=== PATIENT | female | born 1950 | race Two or more races ===

== ENCOUNTER → 2017-08-17 07:49 | Outpatient (CLI) | payer OTHER | END | disposition home or self-care (01) | LOC: LAB 07:49 | DX: D68.9 Coagulation defect, unspecified (principal); I10 Essential (primary) hypertension; N39.0 Urinary tract infection, site not specified ==

== ENCOUNTER 2017-08-17 08:31 | Outpatient (CLI) | payer OTHER | END 2017-08-17 08:35 | disposition home or self-care (01) | LOC: NUCLEAR 08:31 | DX: Z01.810 Encounter for preprocedural cardiovascular examination (principal) ==

== ENCOUNTER → 2017-08-17 | Outpatient (CLI) | payer OTHER | END | disposition home or self-care (01) | LOC: RAD 07:46 | DX: Z01.810 Encounter for preprocedural cardiovascular examination (principal) ==

== ENCOUNTER 2018-01-12 08:14 | Outpatient (CLI) | payer OTHER | END 2018-01-12 08:20 | disposition home or self-care (01) | LOC: LAB 08:14 | DX: N39.0 Urinary tract infection, site not specified (principal); R82.79 Other abnormal findings on microbiological examination of urine ==

== ENCOUNTER 2018-02-18 08:00 | Outpatient (CLI) | payer OTHER | END 2018-02-18 08:11 | disposition home or self-care (01) | LOC: LAB 08:00 | DX: N39.0 Urinary tract infection, site not specified (principal); R82.79 Other abnormal findings on microbiological examination of urine ==

== ENCOUNTER 2018-05-07 08:44 | Outpatient (CLI) | payer OTHER | END 2018-05-07 17:00 | disposition home or self-care (01) | LOC: MAMO-SONO 08:44 | DX: Z12.31 Encounter for screening mammogram for malignant neoplasm of breast (principal); Z87.898 Personal history of other specified conditions; N20.0 Calculus of kidney ==

== ENCOUNTER 2018-05-07 10:49 | Outpatient (CLI) | payer OTHER | END 2018-05-07 18:00 | disposition home or self-care (01) | LOC: LAB 10:49 | DX: N39.0 Urinary tract infection, site not specified (principal) ==

== ENCOUNTER 2019-03-23 09:41 | Outpatient (CLI) | payer OTHER | END 2019-03-23 15:20 | disposition home or self-care (01) | LOC: MAMO-SONO 09:41 | DX: N60.11 Diffuse cystic mastopathy of right breast (principal); N60.12 Diffuse cystic mastopathy of left breast ==

== ENCOUNTER 2019-03-23 09:56 | Outpatient (CLI) | payer OTHER | END 2019-03-23 10:00 | disposition home or self-care (01) | LOC: NUCLEAR 09:56 | DX: M81.0 Age-related osteoporosis without current pathological fracture (principal) ==

== ENCOUNTER 2019-06-23 10:50 | Outpatient (CLI) | payer OTHER | END 2019-06-23 11:05 | disposition home or self-care (01) | LOC: NUCLEAR 10:50 | DX: R94.31 Abnormal electrocardiogram [ECG] [EKG] (principal) ==

== ENCOUNTER 2019-06-23 11:27 | Outpatient (CLI) | payer OTHER | END 2019-06-23 15:00 | disposition home or self-care (01) | LOC: RAD 11:27 | DX: R91.8 Other nonspecific abnormal finding of lung field (principal) ==

== ENCOUNTER 2019-06-23 11:38 | Outpatient (CLI) | payer OTHER | END 2019-06-23 15:00 | disposition home or self-care (01) | LOC: LAB 11:38 | DX: D68.8 Other specified coagulation defects (principal); E78.00 Pure hypercholesterolemia, unspecified ==

== ENCOUNTER → 2020-02-27 | Outpatient (CLI) | payer OTHER | END | disposition home or self-care (01) | LOC: LAB 07:50 | PROVIDERS: ATTEND Radiology Diagnostic Radiology | DX: Z20.828 Contact with and (suspected) exposure to other viral communicable diseases (principal); E78.2 Mixed hyperlipidemia ==

== ENCOUNTER 2020-04-12 11:14 | Outpatient (CLI) | payer OTHER | END 2020-04-12 11:22 | disposition home or self-care (01) | LOC: SONOGRAMA 11:14 | PROVIDERS: ATTEND Pathology Anatomic Pathology & Clinical Pathology | DX: D24.2 Benign neoplasm of left breast (principal); Z12.31 Encounter for screening mammogram for malignant neoplasm of breast ==

== ENCOUNTER → 2020-04-12 | Outpatient (CLI) | payer OTHER | END | disposition home or self-care (01) | LOC: MAMO-SONO 08:41 | PROVIDERS: ATTEND Radiology Diagnostic Radiology | DX: Z12.31 Encounter for screening mammogram for malignant neoplasm of breast (principal); N85.00 Endometrial hyperplasia, unspecified; K76.0 Fatty (change of) liver, not elsewhere classified; Z80.3 Family history of malignant neoplasm of breast ==

== ENCOUNTER → 2020-06-20 11:11 | Outpatient (CLI) | payer OTHER | END | disposition home or self-care (01) | LOC: PPH VACUNA 11:11 | PROVIDERS: ATTEND Emergency Medicine Pediatric Emergency Medicine | DX: Z23 Encounter for immunization (principal) ==

== ENCOUNTER → 2020-07-10 08:00 | Outpatient (CLI) | payer OTHER | END | disposition home or self-care (01) | LOC: PPH VACUNA 08:00 | PROVIDERS: ATTEND Emergency Medicine Pediatric Emergency Medicine | DX: Z23 Encounter for immunization (principal) ==

== ENCOUNTER → 2020-09-26 07:53 | Outpatient (CLI) | payer OTHER | END | disposition home or self-care (01) | LOC: LAB 07:11 | PROVIDERS: ATTEND Radiology Diagnostic Radiology | DX: Z20.828 Contact with and (suspected) exposure to other viral communicable diseases (principal) ==

== ENCOUNTER → 2021-02-13 08:00 | Outpatient (CLI) | payer OTHER | END | disposition home or self-care (01) | LOC: PPH VACUNA 08:00 | PROVIDERS: ATTEND Emergency Medicine Pediatric Emergency Medicine | DX: Z23 Encounter for immunization (principal) ==

== ENCOUNTER → 2021-02-15 07:18 | Outpatient (CLI) | payer OTHER | END | disposition home or self-care (01) | LOC: RAD 02-14 11:45 | PROVIDERS: ATTEND Radiology Diagnostic Radiology | DX: M79.642 Pain in left hand (principal); M79.641 Pain in right hand ==

== ENCOUNTER 2021-05-22 06:22 | Outpatient (CLI) | payer OTHER | END 2021-05-22 16:48 | disposition home or self-care (01) | LOC: MAMO-SONO 06:22 | PROVIDERS: ATTEND Internal Medicine | DX: R92.0 Mammographic microcalcification found on diagnostic imaging of breast (principal); N60.11 Diffuse cystic mastopathy of right breast; N60.12 Diffuse cystic mastopathy of left breast; Z12.31 Encounter for screening mammogram for malignant neoplasm of breast ==

== ENCOUNTER → 2021-05-22 07:22 | Outpatient (CLI) | payer OTHER | END | disposition home or self-care (01) | LOC: LAB 07:22 | PROVIDERS: ATTEND Internal Medicine | DX: D64.89 Other specified anemias (principal); E11.9 Type 2 diabetes mellitus without complications; E78.2 Mixed hyperlipidemia; E03.8 Other specified hypothyroidism; N39.0 Urinary tract infection, site not specified; E55.9 Vitamin D deficiency, unspecified ==

== ENCOUNTER → 2021-07-15 08:23 | Outpatient (CLI) | payer OTHER | END | disposition home or self-care (01) | LOC: LAB 08:23 | PROVIDERS: ATTEND Radiology Diagnostic Radiology | DX: N30.00 Acute cystitis without hematuria (principal) ==

== ENCOUNTER 2021-08-08 09:32 | Outpatient (CLI) | payer OTHER | END 2021-08-08 09:34 | disposition home or self-care (01) | LOC: NUCLEAR 09:32 | PROVIDERS: ATTEND Internal Medicine | DX: M81.0 Age-related osteoporosis without current pathological fracture (principal) ==

== ENCOUNTER 2021-08-08 09:44 | Outpatient (CLI) | payer OTHER | END 2021-08-08 09:45 | disposition home or self-care (01) | LOC: LAB 09:44 | PROVIDERS: ATTEND Radiology Diagnostic Radiology | DX: N39.0 Urinary tract infection, site not specified (principal) ==

== ENCOUNTER 2021-09-10 08:00 | Outpatient (CLI) | payer OTHER | END 2021-09-10 08:30 | disposition home or self-care (01) | LOC: PPH VACUNA 08:00 | PROVIDERS: ATTEND Emergency Medicine Pediatric Emergency Medicine | DX: Z23 Encounter for immunization (principal) ==

== ENCOUNTER → 2023-06-03 | Outpatient (CLI) | payer OTHER | END | disposition home or self-care (01) | LOC: MAMO-SONO 07:46 | PROVIDERS: ATTEND Radiology Diagnostic Radiology | DX: Z12.31 Encounter for screening mammogram for malignant neoplasm of breast (principal) ==

== ENCOUNTER 2024-06-28 07:08 | Outpatient (CLI) | payer OTHER | END 2024-06-28 07:11 | disposition home or self-care (01) | LOC: MAMO-SONO 07:08 | PROVIDERS: ATTEND Radiology Diagnostic Radiology | DX: Z13.9 Encounter for screening, unspecified (principal); N95.0 Postmenopausal bleeding; Z12.31 Encounter for screening mammogram for malignant neoplasm of breast ==

== ENCOUNTER 2024-07-12 13:01 | Inpatient (IN) | payer OTHER ==
[~2024-07-12] VITALS: Ht 165.1 cm; Wt 90.7 kg
[2024-07-12] MEDS ORDERED: ATORVASTATIN CA10 MG PO (13:10)
[2024-07-12] MEDS ORDERED: RALOXIFENE HCL60 MG PO (13:11)
[2024-07-12] MEDS ORDERED: IRBESARTAN-HCT1 EACH PO (13:11)
[2024-07-12] MEDS ORDERED: MORPHINE SULFATE 2 MG/ML SYRINGE IV ONE (14:15)
[2024-07-12] MEDS ORDERED: PIPERACILLIN/TAZOBACTAM SODIUM 3.375 GM VIAL IV ONE ×3 (14:15→18:27)
[2024-07-12 14:25] LABS: HEMATOCRIT 42.6 % (36.0-45.00); HEMOGLOBIN 14.6 g/dL (12.0-15.00); MEAN CELL VOLUME 92.3 fL (80.00-100.00); MEAN CORPUSCULAR HEMOGLOBIN 31.5 pg (27.00-32.0); MEAN CORPUSCULAR HGB CONC 34.1 g/dl (32.0-36.0); PLATELET COUNT 168 K/uL (150-450); RED BLOOD COUNT 4.62 M/uL (4.00-6.00); RED CELL DISTRIBUTION WIDTH 14.5 % (11.5-14.5)
[2024-07-12 14:47] LABS: ALBUMIN 3.9 gm/dL (3.4-5.0); BILIRUBIN TOTAL 1.18 mg/dL (0.3-1.2); BILIRUBIN,CONJUGATED 0.35 mg/dL (0.0-0.2); BILIRUBIN,UNCONJUGATED 0.83 mg/dL (0.0-0.6); CALCIUM 10.2 mg/dL (8.5-10.1); CREATININE SERUM 0.99 mg/dL (0.55-1.02); GFR 55.14; GLOBULINA 3.6 G/DL (2.4-3.5); POTASSIUM 3.74 mEq/L (3.5-5.1); TOTAL PROTEIN 7.5 gm/dL (6.4-8.2)
[2024-07-12 14:49] LABS: INR 1.02; PARTIAL THROMBOPLASTIN TIME 27.9 SECONDS (22.0-34.0); PROTHROMBIN TIME 11.1 SECONDS (9.0-11.5)
[2024-07-12 15:07] LABS: URINE APPEARANCE Cloudy; URINE BILIRRUBIN Small (NEGATIVE); URINE BLOOD Negative; URINE COLOR Dark Yellow; URINE GLUCOSE Negative (NEGATIVE); URINE LEUKOCYTE Moderate; URINE NITRATE Positive; URINE PROTEIN 30 (NEGATIVE)
[2024-07-12 15:11] LABS: URINE EPITHELIAL CELLS 37.2 uL (0.0-38.8); URINE RBC 21.3 uL (0.0-20.8); URINE WBC 592.4 uL (0.0-23.2)
[2024-07-12] MEDS ORDERED: RINGERS SOLUTION,LACTATED 1,000 ML IV SCH ×2 (15:15→20:15)
[2024-07-12 16:02] LABS: URINE BACTERIA > 9821.5 uL (0.0-1933); URINE CAST 1.32 uL (0.0-1.40); URINE KETONE 40 (NEGATIVE)
[2024-07-12 16:30] VITALS: BP 112/74; O2SAT 99
[2024-07-12] MEDS ORDERED: MORPHINE SULFATE 4 MG/ML VIAL IV SCH (17:00)
[2024-07-12] MEDS ORDERED: BUPIVACAINE HCL/MPF 0.5% 30ML VIAL ONE (18:36)
[2024-07-12] MEDS ORDERED: LIDOCAINE HCL 1%/EPINEPHRINE 20ML VIAL IJ ONE ×2 (18:36→21:00)
[2024-07-12] MEDS ORDERED: MORPHINE SULFATE 4 MG/ML CARTRIDGE IV PRN (20:15)
[2024-07-12] MEDS ORDERED: OxyCODONE HCL 5 MG TABLET (ROXICODONE) PO PRN (20:15)
[2024-07-12] MEDS ORDERED: ONDANSETRON HCL 2 MG/ML VIAL IV PRN (20:15)
[2024-07-12] MEDS ORDERED: FAMOTIDINE/PF 20 MG/2 ML VIAL IV PUSH SCH (21:00)
[2024-07-12] MEDS ORDERED: BUPIVACAINE HCL 30 ML VIAL IJ ONE (21:00)
[2024-07-12 21:51] VITALS: BP 95/59; O2SAT 94
[2024-07-13] MEDS ORDERED: PIPERACILLIN/TAZOBACTAM SODIUM 3.375 GM in 0.9 % SODIUM CHLORIDE 100 ML IV SCH
[2024-07-13 00:01] LABS: HEMOGLOBIN 12.9 g/dL (12.0-15.00); MEAN CELL VOLUME 92.4 fL (80.00-100.00); MEAN CORPUSCULAR HEMOGLOBIN 31.5 pg (27.00-32.0); MEAN CORPUSCULAR HGB CONC 34.1 g/dl (32.0-36.0); PLATELET COUNT 154 K/uL (150-450); RED BLOOD COUNT 4.11 M/uL (4.00-6.00); RED CELL DISTRIBUTION WIDTH 14.4 % (11.5-14.5)
[2024-07-13] MEDS ORDERED: GABAPENTIN 300 MG CAPSULE PO SCH (01:00)
[2024-07-13] MEDS ORDERED: METOCLOPRAMIDE HCL 5 MG/ML VIAL IV SCH (01:00)
[2024-07-13] MEDS ORDERED: ACETAMINOPHEN 500 MG GEL..CAP PO SCH (02:00)
[2024-07-13] MEDS ORDERED: CELECOXIB 200 MG CAPSULE PO SCH (05:00)
[2024-07-13] MEDS ORDERED: PIPERACILLIN/TAZOBACTAM SODIUM 3.375 GM VIAL IV ONE (05:46)
[2024-07-13 07:30] LABS: HEMATOCRIT 36.6 % (36.0-45.00); HEMOGLOBIN 12.5 g/dL (12.0-15.00); MEAN CELL VOLUME 91.3 fL (80.00-100.00); MEAN CORPUSCULAR HEMOGLOBIN 31.2 pg (27.00-32.0); MEAN CORPUSCULAR HGB CONC 34.2 g/dl (32.0-36.0); PLATELET COUNT 151 K/uL (150-450); RED CELL DISTRIBUTION WIDTH 14.7 % (11.5-14.5)
[2024-07-13 08:00] VITALS: BP 93/59; O2SAT 94
[2024-07-13 08:02] LABS: ALBUMIN 2.8 gm/dL (3.4-5.0); CALCIUM 9.4 mg/dL (8.5-10.1); CREATININE SERUM 0.99 mg/dL (0.55-1.02); GFR 55.14; MAGNESIUM 2.1 mg/dL (1.8-2.4); PHOSPHOROUS 3.5 mg/dL (2.5-4.9); POTASSIUM 4.23 mEq/L (3.5-5.1)
[2024-07-13] MEDS ORDERED: LACTULOSE 20 G/30 ML BLIST.PACK PO SCH (09:00)
[2024-07-13] MEDS ORDERED: HYOSCYAMINE SULFATE 0.125 MG TAB.SUBL SL SCH (09:00)
[2024-07-13] MEDS ORDERED: ENALAPRILAT DIHYDRATE 1.25 MG/ML VIAL IV PRN (13:15)
[2024-07-13 16:00] VITALS: BP 92/63; O2SAT 94
[2024-07-13] MEDS ORDERED: POLYETHYLENE GLYCOL 3350 17 GM BLIST.PACK PO SCH (17:00)
[2024-07-14] VITALS: BP 88/62; O2SAT 90
[2024-07-14 06:48] LABS: HEMATOCRIT 36.1 % (36.0-45.00); MEAN CELL VOLUME 93.2 fL (80.00-100.00); MEAN CORPUSCULAR HEMOGLOBIN 31.1 pg (27.00-32.0); MEAN CORPUSCULAR HGB CONC 33.4 g/dl (32.0-36.0); PLATELET COUNT 152 K/uL (150-450); RED BLOOD COUNT 3.87 M/uL (4.00-6.00); RED CELL DISTRIBUTION WIDTH 14.4 % (11.5-14.5)
[2024-07-14 08:03] VITALS: BP 86/56; O2SAT 94
[2024-07-14] MEDS ORDERED: GABAPENTIN 100 MG CAPSULE PO SCH (17:00)
[2024-07-14 19:50] VITALS: BP 97/65; O2SAT 96
[2024-07-14] MEDS ORDERED: GABAPENTIN 300 MG CAPSULE PO SCH (21:00)
[2024-07-15 00:46] VITALS: BP 102/68; O2SAT 94
[2024-07-15 06:41] LABS: HEMATOCRIT 32.7 % (36.0-45.00); MEAN CORPUSCULAR HEMOGLOBIN 31.3 pg (27.00-32.0); MEAN CORPUSCULAR HGB CONC 33.7 g/dl (32.0-36.0); PLATELET COUNT 159 K/uL (150-450); RED BLOOD COUNT 3.51 M/uL (4.00-6.00); RED CELL DISTRIBUTION WIDTH 14.6 % (11.5-14.5)
[2024-07-15 07:17] LABS: ALBUMIN 2.4 gm/dL (3.4-5.0); BILIRUBIN TOTAL 0.73 mg/dL (0.3-1.2); CALCIUM 9.5 mg/dL (8.5-10.1); CREATININE SERUM 0.98 mg/dL (0.55-1.02); GFR 55.79; GLOBULINA 2.8 G/DL (2.4-3.5); MAGNESIUM 2.2 mg/dL (1.8-2.4); POTASSIUM 4.7 mEq/L (3.5-5.1); TOTAL PROTEIN 5.2 gm/dL (6.4-8.2)
[2024-07-15 07:42] LABS: PHOSPHOROUS 1.8 mg/dL (2.5-4.9)
[2024-07-15 08:00] VITALS: BP 105/70; O2SAT 95
[2024-07-15] MEDS ORDERED: POTASSIUM PHOS,M-BASIC-D-BASIC 3 MM/ML VIAL IV ONE (10:00)
[2024-07-15 16:00] VITALS: BP 119/75; O2SAT 95
== END 2024-07-15 18:27 | disposition home or self-care (01) | DRG 399 ==
LOC: ER 13:01 → SURH 16:58
PROVIDERS: Emergency Medicine; Internal Medicine Geriatric Medicine; ADMIT Colon & Rectal Surgery; ATTEND Colon & Rectal Surgery
PROC: BW21YZZ Computerized Tomography (CT Scan) of Abdomen and Pelvis using Other Contrast (ICD-10-PCS; 2024-07-12)
PROC: 0DTJ4ZZ Resection of Appendix, Percutaneous Endoscopic Approach (ICD-10-PCS; principal; 2024-07-13)
PROC: 3E1M48Z Irrigation of Peritoneal Cavity using Irrigating Substance, Percutaneous Endoscopic Approach (ICD-10-PCS; 2024-07-13)
PROC: B24BZZZ Ultrasonography of Heart with Aorta (ICD-10-PCS; 2024-07-15)
DX: K35.32 Acute appendicitis with perforation, localized peritonitis, and gangrene, without abscess (principal); I10 Essential (primary) hypertension; E78.5 Hyperlipidemia, unspecified

== ENCOUNTER 2024-07-19 07:57 | Inpatient (IN) | payer OTHER ==
[~2024-07-19] VITALS: Ht 165.1 cm; Wt 90.7 kg
[~2024-07-19 07:57] MED LIST: ATORVASTATIN CA10 MG PO; IRBESARTAN-HCT1 EACH PO; RALOXIFENE HCL60 MG PO
[2024-07-19] MEDS ORDERED: MORPHINE SULFATE 2 MG/ML CARTRIDGE IV ONE (08:15)
[2024-07-19] MEDS ORDERED: 0.9 % SODIUM CHLORIDE 1,000 ML IV SCH (08:30)
[2024-07-19] MEDS ORDERED: DEXTROSE 5 % AND 0.9 % NACL 1,000 ML IV SCH (09:45)
[2024-07-19] MEDS ORDERED: VANCOMYCIN HCL 1,000 MG VIAL IV SCH (10:03)
[2024-07-19] MEDS ORDERED: FAMOTIDINE/PF 20 MG/10 ML SYRINGE IV SCH (10:05)
[2024-07-19] MEDS ORDERED: ENOXAPARIN SODIUM 40 MG/0.4 ML SYRINGE SUBCUTANEO SCH (10:05)
[2024-07-19] MEDS ORDERED: VANCOMYCIN HCL 1,000 MG VIAL ONE ×2 (10:29→21:11)
[2024-07-19] MEDS ORDERED: ENOXAPARIN SODIUM 40 MG/0.4 ML SYRINGE SUBCUTANEO ONE (10:29)
[2024-07-19] MEDS ORDERED: FAMOTIDINE/PF 20 MG/2 ML VIAL ONE (10:29)
[2024-07-19 11:02] VITALS: BP 94/60
[2024-07-19 11:04] LABS: MEAN CORPUSCULAR HGB CONC 32.6 g/dl (32.0-36.0); RED BLOOD COUNT 2.32 M/uL (4.00-6.00); RED CELL DISTRIBUTION WIDTH 14.8 % (11.5-14.5)
[2024-07-19 11:06] LABS: HEMATOCRIT 21.5 % (36.0-45.00); MEAN CORPUSCULAR HEMOGLOBIN 30.1 pg (27.00-32.0)
[2024-07-19 11:07] LABS: PLATELET COUNT 333 K/uL (150-450)
[2024-07-19] MEDS ORDERED: AMINOCAPROIC ACID 250 MG/ML VIAL IV STA (11:07)
[2024-07-19 11:17] LABS: ABG PH 7.467 (7.35-7.45); ABG PO2 63.2 mmHg (80-100); ABG pCO2 27.8 mmHg (35-45); BASE EXCESS -2.6 mmol/l; BICARBONATE 19.6 mmol/l (23-25); SaO2 93.2 %; Tco2 20.5 mmol/l
[2024-07-19 11:28] LABS: allen test SATISFACTORY; o2 21 %; puncture site RADIAL RIGHT
[2024-07-19 11:32] LABS: INR 1.08; PARTIAL THROMBOPLASTIN TIME 23.7 SECONDS (22.0-34.0); PROTHROMBIN TIME 11.7 SECONDS (9.0-11.5)
[2024-07-19] MEDS ORDERED: INSULIN LISPRO 1,000 UNIT/10 ML UNITS SUBCUTANEO PRN (11:45)
[2024-07-19] MEDS ORDERED: DEXTROSE 50 % IN WATER 0.5 G/ML DISP.SYRIN IV PRN (11:45)
[2024-07-19 12:26] LABS: ALBUMIN 1.8 gm/dL (3.4-5.0); BILIRUBIN TOTAL 0.43 mg/dL (0.3-1.2); CALCIUM 8.8 mg/dL (8.5-10.1); CREATININE SERUM 0.91 mg/dL (0.55-1.02); GFR 60.77; GLOBULINA 2.9 G/DL (2.4-3.5); POTASSIUM 4.54 mEq/L (3.5-5.1); TOTAL PROTEIN 4.7 gm/dL (6.4-8.2)
[2024-07-19 12:34] LABS: PROCALCITONIN 1.38 ng/ml (0.020-0.080)
[2024-07-19 12:36] LABS: TSH 0.62 uIU/mL (0.358-3.74)
[2024-07-19 12:40] LABS: C-REACTIVE PROTEIN 12.2 MG/DL (0.00-0.29)
[2024-07-19] MEDS ORDERED: BUPIVACAINE HCL/MPF 0.5% 30ML VIAL ONE (12:48)
[2024-07-19] MEDS ORDERED: LIDOCAINE HCL 1%/EPINEPHRINE 20ML VIAL IJ ONE (12:48)
[2024-07-19] MEDS ORDERED: NOREPINEPHRINE BITARTRATE 1 MG/ML AMPUL IV ONE ×2 (12:58→13:03)
[2024-07-19] MEDS ORDERED: MEROPENEM 500 MG/VIAL VIAL IV SCH ×2 (13:00→17:00)
[2024-07-19 13:03] LABS: PH,URINE 5.5 (5.0-8.0); URINE APPEARANCE Cloudy; URINE BILIRRUBIN Small (NEGATIVE); URINE BLOOD Negative; URINE COLOR Dark Yellow; URINE GLUCOSE Negative (NEGATIVE); URINE KETONE Trace (NEGATIVE); URINE LEUKOCYTE Trace; URINE NITRATE Negative; URINE PROTEIN 30 (NEGATIVE)
[2024-07-19 13:07] LABS: URINE BACTERIA 9.7 uL (0.0-1933); URINE CAST 6.62 uL (0.0-1.40); URINE EPITHELIAL CELLS 6.1 uL (0.0-38.8); URINE RBC 29.3 uL (0.0-20.8); URINE WBC 4.5 uL (0.0-23.2)
[2024-07-19] MEDS ORDERED: HETASTARCH IN 0.9 % NACL 500 ML PLAST..BAG IV ONE (13:26)
[2024-07-19] MEDS ORDERED: METRONIDAZOLE/SODIUM CHLORIDE 500 MG/100 ML PIGGYBACK IV ONE (13:27)
[2024-07-19] MEDS ORDERED: CEFTRIAXONE SODIUM 2,000 MG VIAL ONE (13:27)
[2024-07-19 13:47] LABS: URINE CRYSTALS FEW /HPF; URINE MUCUS HEAVY
[2024-07-19 13:59] LABS: CORTISOL 69.04 ug/dl
[2024-07-19] MEDS ORDERED: MIDAZOLAM HCL 2 MG/2 ML VIAL IV PUSH ONE (15:55)
[2024-07-19 16:23] LABS: ABG PO2 177.8 mmHg (80-100); BASE EXCESS -5.4 mmol/l; BICARBONATE 18.5 mmol/l (23-25); SaO2 99.5 %; Tco2 19.5 mmol/l
[2024-07-19 17:21] LABS: allen test SATISFACTORY; o2 70 %; puncture site RADIAL RIGHT
[2024-07-19 17:22] LABS: HEMATOCRIT 27.6 % (36.0-45.00); HEMOGLOBIN 9.2 g/dL (12.0-15.00); MEAN CELL VOLUME 89.6 fL (80.00-100.00); MEAN CORPUSCULAR HEMOGLOBIN 29.8 pg (27.00-32.0); MEAN CORPUSCULAR HGB CONC 33.4 g/dl (32.0-36.0); PLATELET COUNT 212 K/uL (150-450); RED BLOOD COUNT 3.08 M/uL (4.00-6.00); RED CELL DISTRIBUTION WIDTH 15.3 % (11.5-14.5)
[2024-07-19 17:56] LABS: CALCIUM 7.6 mg/dL (8.5-10.1); CREATININE SERUM 0.96 mg/dL (0.55-1.02); GFR 57.13; POTASSIUM 4.59 mEq/L (3.5-5.1)
[2024-07-19 18:02] LABS: CALCIUM 7.6 mg/dL (8.5-10.1); CREATININE SERUM 1.01 mg/dL (0.55-1.02); GFR 53.88; MAGNESIUM 1.7 mg/dL (1.8-2.4); PHOSPHOROUS 3.5 mg/dL (2.5-4.9); POTASSIUM 4.51 mEq/L (3.5-5.1)
[2024-07-19 19:55] VITALS: BP 123/76; O2SAT 100
[2024-07-19 20:00] VITALS: BP 100/64; O2SAT 100
[2024-07-19 21:00] VITALS: BP 124/74; O2SAT 100
[2024-07-19] MEDS ORDERED: FentaNYL CITRATE/PF 1,000 MCG in 0.9 % SODIUM CHLORIDE 100 ML IV SCH (21:00)
[2024-07-19] MEDS ORDERED: FAMOTIDINE/PF 20 MG/2 ML VIAL IV PUSH SCH (21:00)
[2024-07-19 22:13] VITALS: BP 114/72; O2SAT 100
[2024-07-19 23:25] VITALS: BP 104/67; O2SAT 100
[2024-07-20] VITALS (10 sets, daily range): BP systolic 113–155; BP diastolic 63–92; O2SAT 96–100
[2024-07-20] MEDS ORDERED: MEROPENEM 500 MG/VIAL VIAL IV SCH
[2024-07-20] MEDS ORDERED: CHLORHEXIDINE GLUCONATE 15ML BRUSH KIT MM SCH (01:00)
[2024-07-20] MEDS ORDERED: VANCOMYCIN HCL 1,000 MG VIAL ONE ×2 (08:02→14:34)
[2024-07-20 08:55] LABS: ABG PH 7.374 (7.35-7.45); ABG PO2 111.9 mmHg (80-100); BASE EXCESS -2.2 mmol/l; BICARBONATE 22.8 mmol/l (23-25); SaO2 98.2 %; Tco2 24.1 mmol/l
[2024-07-20 08:56] LABS: allen test SATISFACTORY; o2 50 %; puncture site RADIAL RIGHT
[2024-07-20] MEDS ORDERED: POLYVINYL ALCOHOL 15 ML DROPS OP SCH (09:00)
[2024-07-20 09:56] LABS: MEAN CORPUSCULAR HGB CONC 34.3 g/dl (32.0-36.0); PLATELET COUNT 250 K/uL (150-450); RED BLOOD COUNT 2.53 M/uL (4.00-6.00); RED CELL DISTRIBUTION WIDTH 14.9 % (11.5-14.5)
[2024-07-20 10:22] LABS: MEAN CORPUSCULAR HEMOGLOBIN 30.4 pg (27.00-32.0)
[2024-07-20 10:24] LABS: HEMATOCRIT 22.3 % (36.0-45.00)
[2024-07-20 10:25] LABS: HEMOGLOBIN 7.7 g/dL (12.0-15.00)
[2024-07-20] MEDS ORDERED: FUROsemide 20 MG/2 ML VIAL IV SCH (10:30)
[2024-07-20] MEDS ORDERED: FUROsemide 20 MG/2 ML VIAL IV STA (10:30)
[2024-07-20 10:56] LABS: BILIRUBIN TOTAL 0.23 mg/dL (0.3-1.2); CALCIUM 8.2 mg/dL (8.5-10.1); CREATININE SERUM 0.76 mg/dL (0.55-1.02); GFR 74.81; GLOBULINA 2.7 G/DL (2.4-3.5); MAGNESIUM 1.9 mg/dL (1.8-2.4); POTASSIUM 4.23 mEq/L (3.5-5.1); TOTAL PROTEIN 4.7 gm/dL (6.4-8.2)
[2024-07-20 11:27] LABS: ABG PH 7.434 (7.35-7.45); ABG PO2 126.9 mmHg (80-100); ABG pCO2 34.3 mmHg (35-45)
[2024-07-20 11:33] LABS: BICARBONATE 22.5 mmol/l (23-25); SaO2 98.9 %; Tco2 23.5 mmol/l
[2024-07-20 11:34] LABS: o2 50 %
[2024-07-20 11:35] LABS: allen test SATISFACTORY; puncture site RADIAL RIGHT
[2024-07-20] MEDS ORDERED: ALBUTEROL SULFATE 3 ML/2.5 MG AMPUL.NEB IH SCH (13:00)
[2024-07-20] MEDS ORDERED: MELATONIN 5 MG TABLET PO PRN (19:00)
[2024-07-20] MEDS ORDERED: MORPHINE SULFATE 4 MG/ML VIAL IV PRN (19:00)
[2024-07-20] MEDS ORDERED: MORPHINE SULFATE 4 MG/ML CARTRIDGE IV PRN (19:45)
[2024-07-21] VITALS (10 sets, daily range): BP systolic 88–122; BP diastolic 61–78; O2SAT 92–98
[2024-07-21 02:01] LABS: HEMATOCRIT 25.1 % (36.0-45.00); MEAN CELL VOLUME 86.1 fL (80.00-100.00); MEAN CORPUSCULAR HGB CONC 35.6 g/dl (32.0-36.0); PLATELET COUNT 248 K/uL (150-450); RED BLOOD COUNT 2.91 M/uL (4.00-6.00); RED CELL DISTRIBUTION WIDTH 15.3 % (11.5-14.5)
[2024-07-21 02:10] LABS: HEMOGLOBIN 8.9 g/dL (12.0-15.00); MEAN CORPUSCULAR HEMOGLOBIN 30.5 pg (27.00-32.0)
[2024-07-21] MEDS ORDERED: DILTIAZEM HCL 125MG/25ML VIAL IV SCH (03:00)
[2024-07-21] MEDS ORDERED: DILTIAZEM HCL 125 MG in 0.9 % SODIUM CHLORIDE 100 ML IV SCH (07:00)
[2024-07-21 07:42] LABS: BILIRUBIN TOTAL 0.35 mg/dL (0.3-1.2); CALCIUM 8.5 mg/dL (8.5-10.1); CREATININE SERUM 0.62 mg/dL (0.55-1.02); GFR 94.62; GLOBULINA 2.8 G/DL (2.4-3.5); MAGNESIUM 1.8 mg/dL (1.8-2.4); POTASSIUM 3.53 mEq/L (3.5-5.1); TOTAL PROTEIN 4.8 gm/dL (6.4-8.2)
[2024-07-21 07:51] LABS: PHOSPHOROUS 1.8 mg/dL (2.5-4.9)
[2024-07-21] MEDS ORDERED: VANCOMYCIN HCL 1,000 MG VIAL ONE (08:19)
[2024-07-21] MEDS ORDERED: MAGNESIUM SULFATE IN WATER 2 GM/50 ML PIGGYBAG IV NR (08:45)
[2024-07-21] MEDS ORDERED: POTASSIUM PHOS,M-BASIC-D-BASIC 3 MM/ML VIAL IV NR (09:00)
[2024-07-21] MEDS ORDERED: LEVALBUTEROL HCL 0.63 MG/3 ML SOLUTION IH SCH (17:00)
[2024-07-21 20:56] LABS: HEMATOCRIT 32.8 % (36.0-45.00); HEMOGLOBIN 10.9 g/dL (12.0-15.00); MEAN CELL VOLUME 87.6 fL (80.00-100.00); MEAN CORPUSCULAR HEMOGLOBIN 29.1 pg (27.00-32.0); MEAN CORPUSCULAR HGB CONC 33.3 g/dl (32.0-36.0); PLATELET COUNT 332 K/uL (150-450); RED BLOOD COUNT 3.74 M/uL (4.00-6.00); RED CELL DISTRIBUTION WIDTH 15.4 % (11.5-14.5)
[2024-07-21] MEDS ORDERED: POLYETHYLENE GLYCOL 3350 17 GM BLIST.PACK PO SCH (21:00)
[2024-07-22 00:06] VITALS: BP 105/90; O2SAT 97
[2024-07-22 04:00] VITALS: O2SAT 100
[2024-07-22 07:03] LABS: HEMATOCRIT 29.9 % (36.0-45.00); HEMOGLOBIN 10.2 g/dL (12.0-15.00); MEAN CELL VOLUME 87.8 fL (80.00-100.00); MEAN CORPUSCULAR HGB CONC 34.2 g/dl (32.0-36.0); PLATELET COUNT 323 K/uL (150-450); RED BLOOD COUNT 3.41 M/uL (4.00-6.00); RED CELL DISTRIBUTION WIDTH 15.3 % (11.5-14.5)
[2024-07-22 07:19] VITALS: BP 135/75; O2SAT 100
[2024-07-22 08:05] LABS: ALBUMIN 1.9 gm/dL (3.4-5.0); BILIRUBIN TOTAL 0.52 mg/dL (0.3-1.2); CALCIUM 8.9 mg/dL (8.5-10.1); CREATININE SERUM 0.53 mg/dL (0.55-1.02); GFR 113.39; MAGNESIUM 2.3 mg/dL (1.8-2.4); PHOSPHOROUS 2.6 mg/dL (2.5-4.9); POTASSIUM 3.74 mEq/L (3.5-5.1); TOTAL PROTEIN 4.9 gm/dL (6.4-8.2)
[2024-07-22 12:00] VITALS: BP 146/73; O2SAT 96
[2024-07-22 15:26] VITALS: BP 142/75; O2SAT 98
[2024-07-22 20:00] VITALS: BP 135/70; O2SAT 97
[2024-07-23] VITALS (10 sets, daily range): BP systolic 80–140; BP diastolic 57–81; O2SAT 21–98
[2024-07-23 07:34] LABS: HEMATOCRIT 29.5 % (36.0-45.00); HEMOGLOBIN 10.3 g/dL (12.0-15.00); MEAN CELL VOLUME 86.7 fL (80.00-100.00); MEAN CORPUSCULAR HEMOGLOBIN 30.3 pg (27.00-32.0); MEAN CORPUSCULAR HGB CONC 34.9 g/dl (32.0-36.0); PLATELET COUNT 400 K/uL (150-450)
[2024-07-23 07:46] LABS: ERYTHROCYTE SEDIMENTATION RATE 47 mm/hr
[2024-07-23 07:47] LABS: CREATININE SERUM 0.52 mg/dL (0.55-1.02); GFR 115.91; MAGNESIUM 2.2 mg/dL (1.8-2.4); PHOSPHOROUS 2.9 mg/dL (2.5-4.9); POTASSIUM 3.84 mEq/L (3.5-5.1)
[2024-07-23 07:48] LABS: C-REACTIVE PROTEIN 12.4 MG/DL (0.00-0.29)
[2024-07-23] MEDS ORDERED: LACTULOSE 20 G/30 ML BLIST.PACK PO SCH (09:00)
[2024-07-23] MEDS ORDERED: Cyanocobalamin/Mecobalamin 1 TAB.SL SL SCH (09:00)
[2024-07-23] MEDS ORDERED: SOD FERRIC GLUC COMPLX/SUCROSE 62.5 MG in 0.9 % SODIUM CHLORIDE 50 ML IV SCH (09:00)
[2024-07-23] MEDS ORDERED: TAMSULOSIN HCL 0.4 MG CAP PO NR (12:30)
[2024-07-23] MEDS ORDERED: ACETAMINOPHEN 500 MG GEL..CAP PO PRN (20:15)
[2024-07-23] MEDS ORDERED: MAGNESIUM HYDROXIDE 30 ML BLIST.PACK PO SCH (21:00)
[2024-07-23] MEDS ORDERED: AMIODARONE HCL 50 MG/ML AMPUL IV ONE (23:00)
[2024-07-23] MEDS ORDERED: DILTIAZEM HCL 125 MG in 0.9 % SODIUM CHLORIDE 100 ML IV SCH (23:00)
[2024-07-24] VITALS: BP 99/73; O2SAT 93
[2024-07-24 04:00] VITALS: BP 112/76; O2SAT 95
[2024-07-24 08:00] VITALS: BP 119/72; O2SAT 94
[2024-07-24] MEDS ORDERED: TAMSULOSIN HCL 0.4 MG CAP PO SCH (09:00)
[2024-07-24] MEDS ORDERED: METOPROLOL SUCCINATE 25 MG TAB.SR.24H PO SCH (09:00)
[2024-07-24] MEDS ORDERED: ENOXAPARIN SODIUM 40 MG/0.4 ML SYRINGE SUBCUTANEO SCH (09:00)
[2024-07-24] MEDS ORDERED: DIATRIZOATE MEGLUMINE, SODIUM 30 ML BOTTLE PO NR (09:00)
[2024-07-24 13:37] LABS: HEMATOCRIT 33.7 % (36.0-45.00); HEMOGLOBIN 11.3 g/dL (12.0-15.00); MEAN CELL VOLUME 88.1 fL (80.00-100.00); MEAN CORPUSCULAR HEMOGLOBIN 29.5 pg (27.00-32.0); MEAN CORPUSCULAR HGB CONC 33.5 g/dl (32.0-36.0); PLATELET COUNT 508 K/uL (150-450); RED BLOOD COUNT 3.83 M/uL (4.00-6.00)
[2024-07-24 13:40] LABS: CALCIUM 9.4 mg/dL (8.5-10.1); CREATININE SERUM 0.65 mg/dL (0.55-1.02); GFR 89.6; MAGNESIUM 2.3 mg/dL (1.8-2.4); PHOSPHOROUS 2.4 mg/dL (2.5-4.9); POTASSIUM 3.4 mEq/L (3.5-5.1)
[2024-07-24 16:41] VITALS: BP 134/77; O2SAT 94
[2024-07-24] MEDS ORDERED: POTASSIUM PHOS,M-BASIC-D-BASIC 3 MM/ML VIAL IV ONE (18:45)
[2024-07-24] MEDS ORDERED: POTASSIUM CHLORIDE 20MEQ/100ML H2O PB IV ONE (19:21)
[2024-07-25] VITALS: BP 114/70; O2SAT 99
[2024-07-25 08:45] VITALS: BP 116/73; O2SAT 95
[2024-07-25] MEDS ORDERED: METOPROLOL SUCCINATE 50 MG TAB.SR.24H PO SCH (09:00)
[2024-07-25] MEDS ORDERED: POTASSIUM CHLORIDE 20MEQ/100ML H2O PB IV NR (09:00)
[2024-07-25] MEDS ORDERED: AMIODARONE HCL 200 MG TABLET PO SCH (09:00)
[2024-07-25] MEDS ORDERED: LACTOBACILLUS ACIDOPHILUS 1 CAP CAP PO SCH (09:22)
[2024-07-25] MEDS ORDERED: ORPHENADRINE CITRATE 30 MG/ML AMPUL IM STA (11:24)
[2024-07-25] MEDS ORDERED: VANCOMYCIN HCL 1,000 MG VIAL IV STA (11:24)
[2024-07-25] MEDS ORDERED: VANCOMYCIN HCL 1,000 MG VIAL ONE ×3 (12:18→16:07)
[2024-07-25 17:20] VITALS: BP 123/70; O2SAT 98
[2024-07-25 18:59] LABS: PLEURAL FLUID APPEARANCE TURBID; PLEURAL FLUID COLOR RED-BLOODY
[2024-07-25 19:04] LABS: GLU PLEURAL FLUID 118 mg/dl; LDH PLEURAL FLUID 137 U/L; TP PLEURAL FLUID 2.8 g/dl
[2024-07-25 19:25] LABS: CHOL PLEURAL FLUID < 50 mg/dl
[2024-07-25 19:39] LABS: MONONUCLEAR 80 %; POLYMORPHONUCLEAR 20 %
[2024-07-25] MEDS ORDERED: ORPHENADRINE CITRATE 100 MG TABLET PO SCH (21:00)
[2024-07-26 00:30] VITALS: BP 125/79; O2SAT 99
[2024-07-26] MEDS ORDERED: VANCOMYCIN HCL 1,000 MG VIAL ONE (06:21)
[2024-07-26 07:43] LABS: HEMATOCRIT 33.4 % (36.0-45.00); HEMOGLOBIN 11.2 g/dL (12.0-15.00); MEAN CELL VOLUME 88.2 fL (80.00-100.00); MEAN CORPUSCULAR HEMOGLOBIN 29.5 pg (27.00-32.0); MEAN CORPUSCULAR HGB CONC 33.4 g/dl (32.0-36.0); PLATELET COUNT 587 K/uL (150-450); RED BLOOD COUNT 3.79 M/uL (4.00-6.00); RED CELL DISTRIBUTION WIDTH 15.1 % (11.5-14.5)
[2024-07-26 08:00] VITALS: BP 132/83; O2SAT 95
[2024-07-26 08:04] LABS: ERYTHROCYTE SEDIMENTATION RATE 48 mm/hr
[2024-07-26 08:14] LABS: BILIRUBIN TOTAL 0.73 mg/dL (0.3-1.2); CALCIUM 9.1 mg/dL (8.5-10.1); CREATININE SERUM 0.56 mg/dL (0.55-1.02); GFR 106.41; GLOBULINA 3.2 G/DL (2.4-3.5); MAGNESIUM 2.2 mg/dL (1.8-2.4); PHOSPHOROUS 2.7 mg/dL (2.5-4.9); POTASSIUM 3.99 mEq/L (3.5-5.1); TOTAL PROTEIN 5.2 gm/dL (6.4-8.2)
[2024-07-26 08:15] LABS: C-REACTIVE PROTEIN 7.75 MG/DL (0.00-0.29)
[2024-07-26 12:02] LABS: ABG PH 7.505 (7.35-7.45); ABG pCO2 34.3 mmHg (35-45); BASE EXCESS 3.7 mmol/l; BICARBONATE 26.5 mmol/l (23-25); SaO2 94.4 %; Tco2 27.5 mmol/l
[2024-07-26 12:45] LABS: allen test SATISFACTORY; o2 21 %; puncture site RADIAL LEFT
[2024-07-26 16:00] VITALS: BP 130/79; O2SAT 98
[2024-07-27 00:23] VITALS: BP 139/79; O2SAT 96
[2024-07-27 08:00] VITALS: BP 126/85; O2SAT 94
[2024-07-27] MEDS ORDERED: ENOXAPARIN SODIUM 40 MG/0.4 ML SYRINGE SUBCUTANEO SCH (09:00)
[2024-07-27 16:00] VITALS: BP 124/74; O2SAT 95
[2024-07-28 00:53] VITALS: BP 116/70; O2SAT 94
[2024-07-28 06:59] LABS: MEAN CELL VOLUME 88.2 fL (80.00-100.00); MEAN CORPUSCULAR HEMOGLOBIN 29.4 pg (27.00-32.0); MEAN CORPUSCULAR HGB CONC 33.4 g/dl (32.0-36.0); PLATELET COUNT 494 K/uL (150-450); RED BLOOD COUNT 4.08 M/uL (4.00-6.00); RED CELL DISTRIBUTION WIDTH 15.2 % (11.5-14.5)
[2024-07-28 08:00] VITALS: BP 127/77; O2SAT 94
[2024-07-28 08:29] LABS: CALCIUM 9.6 mg/dL (8.5-10.1); CREATININE SERUM 0.64 mg/dL (0.55-1.02); GFR 91.22; MAGNESIUM 2.3 mg/dL (1.8-2.4); PHOSPHOROUS 2.6 mg/dL (2.5-4.9); POTASSIUM 3.86 mEq/L (3.5-5.1)
[2024-07-28] MEDS ORDERED: CLONAZEPAM0.5 MG PO (13:48)
[2024-07-28] MEDS ORDERED: NORFLEX100MG PO (13:48)
[2024-07-28] MEDS ORDERED: TOPROL XL50 M1 PO (13:48)
[2024-07-28] MEDS ORDERED: INTESTINEX680 M1 PO (13:48)
[2024-07-28] MEDS ORDERED: ELIQUIS5 MG PO (13:48)
[2024-07-28] MEDS ORDERED: AMIODARONE HCL200 MG PO (13:48)
== END 2024-07-28 17:31 | disposition home or self-care (01) | DRG 799 ==
LOC: ER 07:57 → MEDJ 10:34 → ICU-2 10:34 → ICU 10:34 → SURH 10:34 → ICU-2 11:14 → O/R 14:14 → ICU 20:12 → SURH 07-23 12:37 → ICU 07-23 12:56 → SURH 07-23 16:27
PROVIDERS: Anesthesiology; Colon & Rectal Surgery; Emergency Medicine; Internal Medicine; Radiology Vascular & Interventional Radiology; ADMIT Internal Medicine Geriatric Medicine; ATTEND Internal Medicine Geriatric Medicine
PROC: 0DJW0ZZ Inspection of Peritoneum, Open Approach (ICD-10-PCS; 2024-07-19)
PROC: 0BH17EZ Insertion of Endotracheal Airway into Trachea, Via Natural or Artificial Opening (ICD-10-PCS; 2024-07-19)
PROC: 5A1935Z Respiratory Ventilation, Less than 24 Consecutive Hours (ICD-10-PCS; 2024-07-19)
PROC: BW21ZZZ Computerized Tomography (CT Scan) of Abdomen and Pelvis (ICD-10-PCS; 2024-07-19)
PROC: BB24ZZZ Computerized Tomography (CT Scan) of Bilateral Lungs (ICD-10-PCS; 2024-07-19)
PROC: 4A12X4Z Monitoring of Cardiac Electrical Activity, External Approach (ICD-10-PCS; 2024-07-19)
PROC: 3E0F7GC Introduction of Other Therapeutic Substance into Respiratory Tract, Via Natural or Artificial Opening (ICD-10-PCS; 2024-07-19)
PROC: 30233K1 Transfusion of Nonautologous Frozen Plasma into Peripheral Vein, Percutaneous Approach (ICD-10-PCS; 2024-07-19)
PROC: 07BP0ZZ Excision of Spleen, Open Approach (ICD-10-PCS; principal; 2024-07-19 16:15)
PROC: 02HV33Z Insertion of Infusion Device into Superior Vena Cava, Percutaneous Approach (ICD-10-PCS; 2024-07-20)
PROC: 3E04329 Introduction of Other Anti-infective into Central Vein, Percutaneous Approach (ICD-10-PCS; 2024-07-20)
PROC: 30233N1 Transfusion of Nonautologous Red Blood Cells into Peripheral Vein, Percutaneous Approach (ICD-10-PCS; 2024-07-20)
PROC: B246ZZZ Ultrasonography of Right and Left Heart (ICD-10-PCS; 2024-07-24)
PROC: BB24YZZ Computerized Tomography (CT Scan) of Bilateral Lungs using Other Contrast (ICD-10-PCS; 2024-07-24)
PROC: 0W993ZZ Drainage of Right Pleural Cavity, Percutaneous Approach (ICD-10-PCS; 2024-07-25)
PROC: 0W9B3ZZ Drainage of Left Pleural Cavity, Percutaneous Approach (ICD-10-PCS; 2024-07-26)
DX: D73.5 Infarction of spleen (principal); J95.821 Acute postprocedural respiratory failure; R57.1 Hypovolemic shock; J90 Pleural effusion, not elsewhere classified; J98.11 Atelectasis; I48.20 Chronic atrial fibrillation, unspecified; D62 Acute posthemorrhagic anemia; I95.89 Other hypotension; D64.89 Other specified anemias; R73.9 Hyperglycemia, unspecified; R55 Syncope and collapse; D75.838 Other thrombocytosis; M54.59 Other low back pain; R19.7 Diarrhea, unspecified; I10 Essential (primary) hypertension; E03.9 Hypothyroidism, unspecified; E78.00 Pure hypercholesterolemia, unspecified; Y65.8 Other specified misadventures during surgical and medical care